=== PATIENT | female | born 1965 | race Caucasian/White ===

== ENCOUNTER 2024-09-30 22:57 | Emergency (ER) | payer OTHER ==
[~2024-09-30] VITALS: Ht 152.4 cm; Wt 81.6 kg
[2024-10-01] MEDS ORDERED: LOTRISONE EX (00:57)
[2024-10-01 01:55] VITALS: BP 131/81
== END 2024-10-01 01:55 | disposition home or self-care (01) | DRG 759 ==
LOC: ED 22:57
DX: B37.31 Acute candidiasis of vulva and vagina (principal)

== ENCOUNTER 2024-10-14 10:48 | Emergency (ER) | payer OTHER ==
[~2024-10-14] VITALS: Ht 152.4 cm; Wt 82.0 kg
[~2024-10-14 10:48] MED LIST: LOTRISONE EX
[2024-10-14 11:02] VITALS: BP 133/77
[2024-10-14 11:15] VITALS: BP 120/73
[2024-10-14 11:30] VITALS: BP 126/81
== END 2024-10-14 11:34 | disposition home or self-care (01) | DRG 935 ==
LOC: ED 10:48
DX: T23.261A Burn of second degree of back of right hand, initial encounter (principal); T23.221A Burn of second degree of single right finger (nail) except thumb, initial encounter; T22.111A Burn of first degree of right forearm, initial encounter; X04.XXXA Exposure to ignition of highly flammable material, initial encounter